=== PATIENT | female | born 1995 | race Native Hawaiian/Other Pacific Islander ===

== ENCOUNTER 2018-05-28 09:26 | Emergency (ER) | payer BC ==
[~2018-05-28] VITALS: Ht 157.5 cm; Wt 72.6 kg
[2018-05-28 10:34] LABS: PLATELET COUNT 323 K/uL (152-353)
[2018-05-28 10:45] LABS: POTASSIUM 3.4 mmol/L (3.6-5.2)
[2018-05-28 11:28] VITALS: BP 109/66; TEMP 97.7
== END 2018-05-28 11:37 | disposition home or self-care (01) ==
LOC: ED 09:26
PROVIDERS: Family Medicine
DX: J11.1 Influenza due to unidentified influenza virus with other respiratory manifestations (principal); J30.9 Allergic rhinitis, unspecified
CPT/HCPCS: 36415; 80053; 81000; 81025; 85027; 87651; 99283

== ENCOUNTER 2020-07-12 14:00 | Outpatient (CLI) | payer BC, OTHER | END 2020-07-12 16:00 | disposition home or self-care (01) | LOC: INF 14:00 | PROVIDERS: ATTEND Internal Medicine | DX: Z23 Encounter for immunization (principal) | CPT/HCPCS: 96372 ==

== ENCOUNTER 2020-08-05 12:42 | Outpatient (CLI) | payer BC, OTHER | END 2020-08-05 23:59 | disposition home or self-care (01) | LOC: INF 12:42 | PROVIDERS: ATTEND Internal Medicine | DX: Z23 Encounter for immunization (principal) | CPT/HCPCS: 96372 ==